=== PATIENT | female | born 1995 | race Caucasian/White ===

== ENCOUNTER → 2016-11-28 | Outpatient (CLI) | payer OTHER | LOC: HPND 07:29 | PROVIDERS: ATTEND Family Medicine | DX: O26.842 Uterine size-date discrepancy, second trimester (principal); Z36 Encounter for antenatal screening of mother | CPT/HCPCS: 76805 ==

== ENCOUNTER → 2016-12-26 | Outpatient (CLI) | payer OTHER | LOC: HPND 08:43 | PROVIDERS: ATTEND Family Medicine | DX: O09.32 Supervision of pregnancy with insufficient antenatal care, second trimester (principal); Z36 Encounter for antenatal screening of mother; Z3A.00 Weeks of gestation of pregnancy not specified | CPT/HCPCS: 76816 ==

== ENCOUNTER 2017-02-21 14:55 | Emergency (ER) | payer OTHER ==
[~2017-02-21] VITALS: Ht 162.6 cm; Wt 70.0 kg
[2017-02-21 15:22] VITALS: BP 124/69; PULSE 88; RESP 16; TEMP 98.7; O2SAT 96
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
[2017-03-16] MEDS ORDERED: INFL1INJ56 IM (11:42)
[2017-03-16] MEDS ORDERED: TENI5INJ IM (11:42)
[2017-03-16] MEDS ORDERED: TETA1INJ6 IM (11:56)
[2017-03-16] MEDS ORDERED: PREN1TAB30 PO (13:36)
== END 2017-02-21 16:19 | disposition home or self-care (01) ==
LOC: PHED 14:55
DX: O26.893 Other specified pregnancy related conditions, third trimester (principal); F41.9 Anxiety disorder, unspecified; Z3A.30 30 weeks gestation of pregnancy
CPT/HCPCS: 99284

== ENCOUNTER 2017-04-18 17:00 | Emergency (ER) | payer OTHER ==
[~2017-04-18] VITALS: Ht 162.6 cm; Wt 75.0 kg
[~2017-04-18 17:00] MED LIST: CEPH-460 PO; PREN1TAB30 PO
[2017-04-18 17:02] VITALS: BP 125/87; PULSE 88; RESP 12; TEMP 99; O2SAT 99
[2017-04-18] MEDS ORDERED: diphenhydrAMINE HCL 50 MG/ML VIAL IV PUSH ONE (19:30)
[2017-04-18] MEDS ORDERED: SODIUM CHLORIDE 0.9% FLUSH 10 ML FLUSH IV FLUSH PRN (19:30)
[2017-04-18 19:52] VITALS: RESP 19; O2SAT 100
--- NOTE | 2017-04-18 19:52 | PD ---
HPI Chief Complaint: Anxiety Time Seen by Provider: 19:20 (Epifanio Kang) Time Seen by Provider: 19:20 (Damaso Linder MD) Travel History International Travel<30 days: No Contact w/Intl Traveler<30days: No Traveled to known affect area: No (Epifanio Kang) History of Present Illness HPI 22-year-old female seen by Dr. Davis for her OB care, presents the emergency department with increasing symptoms of anxiety and emotional distress. Patient denies depression, suicidality or homicidality. She is here with her parents and brother. She has good social support. Patient has history of anxiety in the past. Patient states the baby is moving and she has no acute medical complaints at this time. (Epifanio Kang) PFSH Past Medical History Anxiety: Yes Immunizations Current: Yes ?: (Epifanio Kang) Past Surgical History Surgical History: No Previous Surgery (Epifanio Kang) Social History Alcohol Use: No Tobacco Use: No Substance Use: No (Epifanio Kang) Allergies-Medications (Allergen,Severity, Reaction): Coded Allergies: No Known Allergies (Unverified , 04/18/17) Reported Meds & Prescriptions Reported Meds & Active Scripts Active Phenergan (Promethazine HCl) 25 Mg Tablet 25 Mg PO Q6H PRN Diphenhydramine (Diphenhydramine HCl) 25 Mg Cap 25 Mg PO Q6H PRN Keflex (Cephalexin) 500 Mg Cap 500 Mg PO Q12H Vitamin 27-0.8 mg ( Vit W/ Ferrous Fumara) 27 Mg Iron-800 Mcg Tab 1 Tab PO DAILY (Damaso Linder MD) Review of Systems Except as stated in HPI: all other systems reviewed are Neg General / Constitutional: No: Fever Eyes: No: Visual changes HENT: No: Headaches Cardiovascular: No: Chest Pain or Discomfort Respiratory: No: Shortness of Breath Gastrointestinal: No: Abdominal Pain Genitourinary: No: Dysuria Musculoskeletal: No: Pain Skin: No Rash Neurologic: No: Weakness Psychiatric: Positive: Anxiety, No: Depression, Suicidal Ideations, Disorder of Thought, Mood Disorder, Homicidal Ideation Endocrine: No: Polydipsia Hematologic/Lymphatic: No: Easy Bruising (Epifanio Kang) Physical Exam Narrative GENERAL: Patient appears anxious but otherwise no acute distress SKIN: Warm and dry. Normal color. Normal turgor. HEAD: Atraumatic. Normocephalic. EYES: Pupils equal and round. No scleral icterus. No injection or drainage. ENT: No nasal bleeding or discharge. Mucous membranes pink and moist. NECK: Trachea midline. No JVD. CARDIOVASCULAR: Regular rate and rhythm. RESPIRATORY: No accessory muscle use. Clear to auscultation. Breath sounds equal bilaterally. GASTROINTESTINAL: Abdomen soft, non-tender, gravid uterus. Hepatic and splenic margins not palpable. MUSCULOSKELETAL: Extremities without clubbing, cyanosis, or edema. No obvious deformities. NEUROLOGICAL: Awake and alert. No obvious cranial nerve deficits. Motor grossly within normal limits. Five out of 5 muscle strength in the arms and legs. Normal speech. PSYCHIATRIC: Appropriate mood and affect; insight and judgment normal. (Epifanio Kang) Data Data Last Documented VS Vital Signs Date Time Temp Pulse Resp B/P (MAP) Pulse Ox O2 Delivery O2 Flow Rate FiO2 04/18/17 22:15 04/18/17 19:52 19 100 Room Air 04/18/17 17:02 99.0 88 (Damaso Linder MD) Orders Orders Complete Blood Count With Diff (04/18/17 19:26) Comprehensive Metabolic Panel (04/18/17 19:26) Urinalysis - C+S If Indicated (04/18/17 19:26) Iv Access Insert/Monitor (04/18/17 19:26) Ecg Monitoring (04/18/17 19:26) Oximetry (04/18/17 19:26) Sodium Chloride 0.9% Flush (Ns Flush) (04/18/17 19:30) Diphenhydramine Inj (Benadryl Inj) (04/18/17 19:30) Urine Culture (04/18/17 21:28) (Damaso Linder MD) Labs Laboratory Tests Test 04/18/17 19:45 04/18/17 21:28 White Blood Count 10.2 TH/MM3 Red Blood Count 4.22 MIL/MM3 Hemoglobin 13.5 GM/DL Hematocrit 39.7 % Mean Corpuscular Volume 93.9 FL Mean Corpuscular Hemoglobin 31.9 PG Mean Corpuscular Hemoglobin Concent 34.0 % Red Cell Distribution Width 13.7 % Platelet Count 250 TH/MM3 Mean Platelet Volume 9.1 FL Neutrophils (%) (Auto) 71.9 % Lymphocytes (%) (Auto) 17.6 % Monocytes (%) (Auto) 9.3 % Eosinophils (%) (Auto) 0.8 % Basophils (%) (Auto) 0.4 % Neutrophils # (Auto) 7.3 TH/MM3 Lymphocytes # (Auto) 1.8 TH/MM3 Monocytes # (Auto) 0.9 TH/MM3 Eosinophils # (Auto) 0.1 TH/MM3 Basophils # (Auto) 0.0 TH/MM3 CBC Comment DIFF FINAL Differential Comment Blood Urea Nitrogen 8 MG/DL Creatinine 0.72 MG/DL Random Glucose 79 MG/DL Total Protein 6.8 GM/DL Albumin 2.8 GM/DL Calcium Level 8.5 MG/DL Alkaline Phosphatase 175 U/L Aspartate Amino Transf (AST/SGOT) 26 U/L Alanine Aminotransferase (ALT/SGPT) 21 U/L Total Bilirubin 0.3 MG/DL Sodium Level 139 MEQ/L Potassium Level 3.9 MEQ/L Chloride Level 107 MEQ/L Carbon Dioxide Level 23.4 MEQ/L Anion Gap 9 MEQ/L Estimat Glomerular Filtration Rate 101 ML/MIN Urine Color YELLOW Urine Turbidity CLOUDY Urine pH 7.5 Urine Specific [place] 1.022 Urine Protein 30 mg/dL Urine Glucose (UA) NEG mg/dL Urine Ketones NEG mg/dL Urine Occult Blood NEG Urine Nitrite NEG Urine Bilirubin NEG Urine Urobilinogen 2.0 MG/DL Urine Leukocyte Esterase LARGE Urine RBC 14 /hpf Urine WBC 15 /hpf Urine Squamous Epithelial Cells 29 /hpf Urine Amorphous Sediment OCC Urine Bacteria MANY /hpf Urine Mucus FEW /lpf Microscopic Urinalysis Comment CULTURE INDICATED (Damaso Linder MD) MDM Medical Decision Making Medical Screen Exam Complete: Yes Emergency Medical Condition: Yes Differential Diagnosis 37 weeks . UTI. Anxious. Anxiety Narrative Course Patient appears mildly anxious but otherwise in no acute distress. heart tones are 133 bpm. EKG with mom shows sinus rhythm without ST changes. Labs ordered including CBC, CMP, urinalysis, and beta hCG. CBC is unremarkable. CMP is unremarkable except alkaline phosphatase of 175. Albumin of 2.8. Urinalysis shows continued UTI and urine culture is pending. Patient to continue her Keflex as previously prescribed. Patient is given 25 mg Benadryl IV. Patient states she is not suicidal or homicidal. I do not feel she is a danger to herself or others. Patient has good support. Call was placed to Dr. Davis's office, and I spoke with Dr. Costa, and we discussed possible treatment for her anxiety. It was decided that if the labs on the patient are normal, we will treat her with Benadryl 25 mg every 6 hours when necessary as well as Phenergan, 12.5 mg every 6 hours when necessary. Patient is to follow with Dr. Davis's office next week. (Epifanio Kang) Diagnosis Primary Impression: Anxiety Additional Impression: 37 weeks gestation of Referrals: William Davis MD, R3 Patient Instructions: Anxiety (ED), General Instructions Med/Other Pt SpecificInfo: Prescription(s) given, No Change to Meds (Epifanio Kang) Scripts Promethazine (Phenergan) 25 Mg Tablet 25 MG PO Q6H Y for ANXIETY, #30 TAB 0 Refills Prov: Damaso Linder MD 04/18/17 Diphenhydramine (Diphenhydramine) 25 Mg Cap 25 MG PO Q6H Y for ANXIETY AND/OR INSOMNIA, #60 CAP 0 Refills Prov: Damaso Linder MD 04/18/17 Disposition: 01 DISCHARGE HOME Condition: Stable Epifanio Kang Apr 18, 2017 19:52 Damaso Linder MD Apr 20, 2017 02:39
[2017-04-18 20:16] LABS: AUTOMATED NEUTROPHIL # 7.3 TH/MM3 (1.8-7.7); BASOPHIL % 0.4 % (0.0-2.0); EOSINOPHIL # 0.1 TH/MM3 (0-0.4); EOSINOPHIL % 0.8 % (0.0-4.0); HEMATOCRIT 39.7 % (35.0-46.0); HEMO FLAGS DIFF FINAL; LYMPH % 17.6 % (9.0-44.0); LYMPHOCYTE # 1.8 TH/MM3 (1.0-4.8); MEAN CELL VOLUME 93.9 FL (80.0-100.0); MEAN CORPUSCULAR HEMOGLOBIN 31.9 PG (27.0-34.0); MONO % 9.3 % (0.0-8.0); NEUT % 71.9 % (16.0-70.0); PLATELET COUNT 250 TH/MM3 (150-450); RED BLOOD COUNT 4.22 MIL/MM3 (4.00-5.30); RED CELL DISTRIBUTION WIDTH 13.7 % (11.6-17.2); WHITE BLOOD COUNT 10.2 TH/MM3 (4.0-11.0)
--- NOTE | 2017-04-18 20:25 | PD ---
Physical Exam Narrative pt has anxiety 37 weeks PA spoke to KENN MUÑOZ plan benadryl phergan I have reviewed the case with the PA and agree with plan and dispo I have seen the pt personally and made this discsion with the PA Data Data Last Documented VS Vital Signs Date Time Temp Pulse Resp B/P (MAP) Pulse Ox O2 Delivery O2 Flow Rate FiO2 04/18/17 22:15 04/18/17 19:52 19 100 Room Air 04/18/17 17:02 99.0 88 Orders Orders Complete Blood Count With Diff (04/18/17 19:26) Comprehensive Metabolic Panel (04/18/17 19:26) Urinalysis - C+S If Indicated (04/18/17 19:26) Iv Access Insert/Monitor (04/18/17 19:26) Ecg Monitoring (04/18/17 19:26) Oximetry (04/18/17 19:26) Sodium Chloride 0.9% Flush (Ns Flush) (04/18/17 19:30) Diphenhydramine Inj (Benadryl Inj) (04/18/17 19:30) Urine Culture (04/18/17 21:28) Labs Laboratory Tests Test 04/18/17 19:45 04/18/17 21:28 White Blood Count 10.2 TH/MM3 Red Blood Count 4.22 MIL/MM3 Hemoglobin 13.5 GM/DL Hematocrit 39.7 % Mean Corpuscular Volume 93.9 FL Mean Corpuscular Hemoglobin 31.9 PG Mean Corpuscular Hemoglobin Concent 34.0 % Red Cell Distribution Width 13.7 % Platelet Count 250 TH/MM3 Mean Platelet Volume 9.1 FL Neutrophils (%) (Auto) 71.9 % Lymphocytes (%) (Auto) 17.6 % Monocytes (%) (Auto) 9.3 % Eosinophils (%) (Auto) 0.8 % Basophils (%) (Auto) 0.4 % Neutrophils # (Auto) 7.3 TH/MM3 Lymphocytes # (Auto) 1.8 TH/MM3 Monocytes # (Auto) 0.9 TH/MM3 Eosinophils # (Auto) 0.1 TH/MM3 Basophils # (Auto) 0.0 TH/MM3 CBC Comment DIFF FINAL Differential Comment Blood Urea Nitrogen 8 MG/DL Creatinine 0.72 MG/DL Random Glucose 79 MG/DL Total Protein 6.8 GM/DL Albumin 2.8 GM/DL Calcium Level 8.5 MG/DL Alkaline Phosphatase 175 U/L Aspartate Amino Transf (AST/SGOT) 26 U/L Alanine Aminotransferase (ALT/SGPT) 21 U/L Total Bilirubin 0.3 MG/DL Sodium Level 139 MEQ/L Potassium Level 3.9 MEQ/L Chloride Level 107 MEQ/L Carbon Dioxide Level 23.4 MEQ/L Anion Gap 9 MEQ/L Estimat Glomerular Filtration Rate 101 ML/MIN Urine Color YELLOW Urine Turbidity CLOUDY Urine pH 7.5 Urine Specific [place] 1.022 Urine Protein 30 mg/dL Urine Glucose (UA) NEG mg/dL Urine Ketones NEG mg/dL Urine Occult Blood NEG Urine Nitrite NEG Urine Bilirubin NEG Urine Urobilinogen 2.0 MG/DL Urine Leukocyte Esterase LARGE Urine RBC 14 /hpf Urine WBC 15 /hpf Urine Squamous Epithelial Cells 29 /hpf Urine Amorphous Sediment OCC Urine Bacteria MANY /hpf Urine Mucus FEW /lpf Microscopic Urinalysis Comment CULTURE INDICATED MDM Medical Record Reviewed: Yes Supervised Visit with DIONTE: Yes Diagnosis Primary Impression: Anxiety Additional Impression: 37 weeks gestation of Patient Instructions: General Instructions, Anxiety (ED) Scripts Promethazine (Phenergan) 25 Mg Tablet 25 MG PO Q6H Y for ANXIETY, #30 TAB 0 Refills Prov: Damaso Linder MD 04/18/17 Diphenhydramine (Diphenhydramine) 25 Mg Cap 25 MG PO Q6H Y for ANXIETY AND/OR INSOMNIA, #60 CAP 0 Refills Prov: Damaso Linder MD 04/18/17 Disposition: 01 DISCHARGE HOME Condition: Stable Damaso Linder MD Apr 18, 2017 20:25
[2017-04-18 20:40] LABS: ANION GAP 9 MEQ/L (5-15); AST (GOT) 26 U/L (15-37); BICARBONATE 23.4 MEQ/L (21.0-32.0); BLOOD UREA NITROGEN 8 MG/DL (7-18); CHLORIDE 107 MEQ/L (98-107); GLOMERULAR FILTRATION RATE 101 ML/MIN (>89); POTASSIUM 3.9 MEQ/L (3.5-5.1); SODIUM (NA) 139 MEQ/L (136-145)
[2017-04-18 20:41] LABS: ALT (GPT) 21 U/L (10-53)
[2017-04-18 20:43] LABS: ALKALINE PHOSPHATASE 175 U/L (45-117); TOTAL BILIRUBIN ADULT 0.3 MG/DL (0.2-1.0)
[2017-04-18] MEDS ORDERED: DIPH25CA PO (21:43)
[2017-04-18] MEDS ORDERED: PROM25TA10 PO (21:43)
[2017-04-18 21:55] LABS: BACTERIA, URINE MANY /hpf; BLOOD, URINE NEG (NEG); COMMENT (UR) CULTURE INDICATED; CULTURE IF INDICATED CULTURE INDICATED; GLUCOSE,URINE NEG (NEG); KETONE, URINE NEG (NEG); MUCUS URINE FEW /lpf (OCC); NITRITE,URINE NEG (NEG); PH, URINE 7.5 (5.0-8.5); SQUAMOUS EPITHELIAL CELL URINE 29 /hpf (0-5); URINE COLOR YELLOW (YELLW/STRAW)
--- NOTE | 2017-04-19 20:51 | PD ---
Data Data Last Documented VS Vital Signs Date Time Temp Pulse Resp B/P (MAP) Pulse Ox O2 Delivery O2 Flow Rate FiO2 04/18/17 22:15 04/18/17 19:52 19 100 Room Air 04/18/17 17:02 99.0 88 Orders Orders Complete Blood Count With Diff (04/18/17 19:26) Comprehensive Metabolic Panel (04/18/17 19:26) Urinalysis - C+S If Indicated (04/18/17 19:26) Iv Access Insert/Monitor (04/18/17 19:26) Ecg Monitoring (04/18/17 19:26) Oximetry (04/18/17 19:26) Sodium Chloride 0.9% Flush (Ns Flush) (04/18/17 19:30) Diphenhydramine Inj (Benadryl Inj) (04/18/17 19:30) Urine Culture (04/18/17 21:28) Labs Laboratory Tests Test 04/18/17 19:45 04/18/17 21:28 White Blood Count 10.2 TH/MM3 Red Blood Count 4.22 MIL/MM3 Hemoglobin 13.5 GM/DL Hematocrit 39.7 % Mean Corpuscular Volume 93.9 FL Mean Corpuscular Hemoglobin 31.9 PG Mean Corpuscular Hemoglobin Concent 34.0 % Red Cell Distribution Width 13.7 % Platelet Count 250 TH/MM3 Mean Platelet Volume 9.1 FL Neutrophils (%) (Auto) 71.9 % Lymphocytes (%) (Auto) 17.6 % Monocytes (%) (Auto) 9.3 % Eosinophils (%) (Auto) 0.8 % Basophils (%) (Auto) 0.4 % Neutrophils # (Auto) 7.3 TH/MM3 Lymphocytes # (Auto) 1.8 TH/MM3 Monocytes # (Auto) 0.9 TH/MM3 Eosinophils # (Auto) 0.1 TH/MM3 Basophils # (Auto) 0.0 TH/MM3 CBC Comment DIFF FINAL Differential Comment Blood Urea Nitrogen 8 MG/DL Creatinine 0.72 MG/DL Random Glucose 79 MG/DL Total Protein 6.8 GM/DL Albumin 2.8 GM/DL Calcium Level 8.5 MG/DL Alkaline Phosphatase 175 U/L Aspartate Amino Transf (AST/SGOT) 26 U/L Alanine Aminotransferase (ALT/SGPT) 21 U/L Total Bilirubin 0.3 MG/DL Sodium Level 139 MEQ/L Potassium Level 3.9 MEQ/L Chloride Level 107 MEQ/L Carbon Dioxide Level 23.4 MEQ/L Anion Gap 9 MEQ/L Estimat Glomerular Filtration Rate 101 ML/MIN Urine Color YELLOW Urine Turbidity CLOUDY Urine pH 7.5 Urine Specific [place] 1.022 Urine Protein 30 mg/dL Urine Glucose (UA) NEG mg/dL Urine Ketones NEG mg/dL Urine Occult Blood NEG Urine Nitrite NEG Urine Bilirubin NEG Urine Urobilinogen 2.0 MG/DL Urine Leukocyte Esterase LARGE Urine RBC 14 /hpf Urine WBC 15 /hpf Urine Squamous Epithelial Cells 29 /hpf Urine Amorphous Sediment OCC Urine Bacteria MANY /hpf Urine Mucus FEW /lpf Microscopic Urinalysis Comment CULTURE INDICATED MDM Supervised Visit with DIONTE: Yes Diagnosis Primary Impression: Anxiety Additional Impression: 37 weeks gestation of Patient Instructions: General Instructions, Anxiety (ED) Departure Forms: Tests/Procedures Scripts Promethazine (Phenergan) 25 Mg Tablet 25 MG PO Q6H Y for ANXIETY, #30 TAB 0 Refills Prov: Damaso Linder MD 04/18/17 Diphenhydramine (Diphenhydramine) 25 Mg Cap 25 MG PO Q6H Y for ANXIETY AND/OR INSOMNIA, #60 CAP 0 Refills Prov: Damaso Linder MD 04/18/17 Disposition: 01 DISCHARGE HOME Condition: Stable Damaso Linder MD Apr 19, 2017 20:51
== END 2017-04-18 22:28 | disposition home or self-care (01) ==
LOC: NEPC 17:00
DX: O99.343 Other mental disorders complicating pregnancy, third trimester (principal); F41.9 Anxiety disorder, unspecified; Z3A.37 37 weeks gestation of pregnancy; B96.89 Other specified bacterial agents as the cause of diseases classified elsewhere; R82.90 Unspecified abnormal findings in urine
CPT/HCPCS: 80053; 81001; 85025; 87086; 96374; 99284; J1200

== ENCOUNTER 2017-05-12 09:45 | Emergency (ER) | payer OTHER ==
[~2017-05-12 09:45] MED LIST changes: -CEPH-460 PO; +DIPH25CA PO; +PROM25TA10 PO
--- NOTE | 2017-05-12 11:40 | PD ---
HPI Chief Complaint Patient was sent from clinic for NST Date Seen: May 12, 2017 Travel History International Travel<30 Days: No Contact w/Intl Traveler<30Days: No History of Present Illness HPI 22 at 40/6 weeks gestation that presents to the [facility], sent from the [facility] for NST. Notably, patient is GBS positive and receives her care with Dr. Daquan Davis, one of the family. Patient has no complaints today. She denies vaginal bleeding, dysuria, loss of fluid, nausea, vomiting, fever, or chills. She is not feeling contractions. She has been feeling her baby move. History Past Medical History Medical History: Denies Significant Hx Obstetric History Obstetric History , uncomplicated . GBS positive Past Surgical History Surgical History: No Previous Surgery Family History Family History: Negative Social History Alcohol Use: No Tobacco Use: No Substance Abuse: No Allergies-Medications (Allergen,Severity, Reaction): Coded Allergies: No Known Allergies (Unverified , 05/06/17) Home Meds Active Scripts Promethazine (Phenergan) 25 Mg Tablet, 25 MG PO Q6H Y for ANXIETY, #30 TAB 0 Refills Prov:Damaso Linder MD 04/18/17 Diphenhydramine (Diphenhydramine) 25 Mg Cap, 25 MG PO Q6H Y for ANXIETY AND/OR INSOMNIA, #60 CAP 0 Refills Prov:Damaso Linder MD 04/18/17 Vit W/ Ferrous Fumara ( Vitamin 27-0.8 mg) 27 Mg Iron-800 Mcg Tab, 1 TAB PO DAILY, #30 TAB Prov:iWlliam Davis MD, R3 03/16/17 Review of Systems Except as stated in HPI: all other systems reviewed are Neg Physical Exam Narrative GENERAL: Well-nourished, well-developed patient. SKIN: Warm and dry. HEAD: Normocephalic and atraumatic. EYES: No scleral icterus. No injection or drainage. ENT: No nasal drainage noted. Mucous membranes pink. Airway patent. NECK: Supple, trachea midline. No JVD. CARDIOVASCULAR: Regular rate and rhythm without murmurs, gallops, or rubs. RESPIRATORY: Breath sounds equal bilaterally. No accessory muscle use. ABDOMEN/GI: Abdomen soft, non-tender, bowel sounds present, no rebound, no guarding Gravid to 40 weeks size GENITOURINARY: External Genitalia: intact and normal in appearance Cervix: Posterior Dilatation: 2cm Effacement: 50% Station: -3 Presentation: cephalic Membranes: intact Uterine Contractions: every 6-9 mins FHT's: Category: I Baseline: 140 Reactive: Up to 155 Variability: Moderate Decels: None EXTREMITIES: No cyanosis or edema. BACK: Nontender without obvious deformity. No CVA tenderness. NEUROLOGICAL: Awake and alert. Motor and sensory grossly within normal limits. Five out of 5 muscle strength in all muscle groups. Normal speech. Data Data Vital Signs Reviewed: Yes Orders Orders Vital Signs (Adult) .ON ADMISSION (05/12/17 11:35) ^ Labor Status (05/12/17 11:35) ^ Non Stress Test (05/12/17 11:35) ^ Hydration (05/12/17 11:35) Group B Strep: Positive MDM Medical Record Reviewed: Yes Interpretation(s) 22 at 40/6 weeks gestation presents for NST due to post-dates Narrative Course / MDM Reassuring strip category I, no decelerations. Baby doing well. Mom not feeling contractions which are occurring every 6-9 mins. Dilated to 2 cm. No complications. Plan Plan is to admit tomorrow 05/13/17 at 8 PM for cervical ripening/induction of labor Induction discussed with patient, family members, and will be provided Dr. Daquan Davis who all agree with the plan. Discussed signs of labor and patient instructed to return to the ED if her water breaks. Diagnosis Diagnosis: Primary Impression: Post-dates Disposition: DISCHARGE HOME Patient Instructions: Early Labor Signs (ED) Additional Instructions: Pls return to the ED if your water breaks or you start having frequent, painful contractions. If not, we will see you tomorrow 05/13 at 8pm for induction. Olga Vyas MD R2 May 12, 2017 11:40
[2017-05-13] MEDS ORDERED: PRENTAB7 (20:30)
== END 2017-05-12 12:45 | disposition home or self-care (01) ==
LOC: HOBED 09:45
DX: O48.0 Post-term pregnancy (principal); Z3A.40 40 weeks gestation of pregnancy
CPT/HCPCS: 59025

== ENCOUNTER 2017-05-13 20:02 | Inpatient (IN) | payer OTHER ==
[~2017-05-13] VITALS: Ht 162.6 cm; Wt 74.4 kg
[2017-05-13] MEDS ORDERED: PRENTAB7 (20:30)
--- NOTE | 2017-05-13 20:49 | HHI.HP ---
HPI Travel History International Travel<30 Days: No Contact w/Intl Traveler<30Days: No History of Present Illness HPI Patient is a 22 y/o @41 weeks presenting for induction of labor. Is a patient of Dr.Grant Davis, who she saw yesterday and who sent her to [place] for NST. NST was category 1 and cervix was dilated to 2 cm. Today, patient endorses contractions she feels that are occurring every 20-30 min, + FM. Denies vaginal bleeding, leakage of fluid, visual disturbance, leg swelling, abdominal pain. No hospitalizations or complications during . GBS+. PAP 12/26/16 was ASGUS. Weeks Gestation: 41 Para: 0 : 1 Miscarriage: 0 : 0 History Past Medical History Narrative Medical Generalized anxiety Obstetric History Obstetric History G1PO This is her first GBS+ PAP 12/26/16 was ASGUS Blood type 0, Rh+ EED per US is 11.22.17 Past Surgical History Surgical History: No Previous Surgery Family History Family History: Negative Social History Alcohol Use: No Tobacco Use: No Substance Abuse: No Allergies-Medications (Allergen,Severity, Reaction): Coded Allergies: No Known Allergies (Unverified , 05/13/17) Home Meds Reported Medications Pnv No.95/Ferrous Fum/Folic AC ( Vitamins Tablet) 28 Mg Iron-800 Mcg Tablet 05/13/17 Discontinued Scripts Promethazine (Phenergan) 25 Mg Tablet, 25 MG PO Q6H Y for ANXIETY, #30 TAB 0 Refills Prov:Damaso Linder MD 04/18/17 Diphenhydramine (Diphenhydramine) 25 Mg Cap, 25 MG PO Q6H Y for ANXIETY AND/OR INSOMNIA, #60 CAP 0 Refills Prov:Damaso Linder MD 04/18/17 Vit W/ Ferrous Fumara ( Vitamin 27-0.8 mg) 27 Mg Iron-800 Mcg Tab, 1 TAB PO DAILY, #30 TAB Prov:William Davis MD, R3 03/16/17 Review of Systems Except as stated in HPI: all other systems reviewed are Neg Physical Exam Narrative GENERAL: Well-nourished, well-developed patient. SKIN: Warm and dry. HEAD: Normocephalic and atraumatic. EYES: No scleral icterus. No injection or drainage. ENT: No nasal drainage noted. Mucous membranes pink. Airway patent. NECK: Supple, trachea midline. CARDIOVASCULAR: Regular rate and rhythm without murmurs, gallops, or rubs. RESPIRATORY: Breath sounds equal bilaterally. No accessory muscle use. ABDOMEN/GI: Abdomen soft, non-tender, no rebound, no guarding GENITOURINARY: External Genitalia: intact and normal in appearance Cervix: soft Dilatation: 5 cm Effacement: 70% Station: -2 Presentation: [-] Membranes: intact Uterine Contractions: none, appears to be uterine irritability FHT's: Category: 1 Baseline: 130 Reactive: yes Variability: moderate Decels: absent EXTREMITIES: No cyanosis or edema. NEUROLOGICAL: Awake and alert. Motor and sensory grossly within normal limits. Five out of 5 muscle strength in all muscle groups. Normal speech. Caprini VTE Risk Assessment Caprini VTE Risk Assessment: No/Low Risk (score <= 1) Caprini Risk Assessment Model Point Value = 1 Point Value = 2 Point Value = 3 Point Value = 5 Age 41-60 Minor surgery BMI > 25 kg/m2 Swollen legs Varicose veins or History of unexplained or recurrent spontaneous Oral contraceptives or hormone replacement Sepsis (< 1 month) Serious lung disease, including pneumonia (< 1 month) Abnormal pulmonary function Acute myocardial infarction Congestive heart failure (< 1 month) History of inflammatory bowel disease Medical patient at bed rest Age 61-74 Arthroscopic surgery Major open surgery (> 45 min) Laparoscopic surgery (> 45 min) Malignancy Confined to bed (> 72 hours) Immobilizing plaster cast Central venous access Age >= 75 History of VTE Family history of VTE Factor V Leiden Prothrombin [id number] Lupus anticoagulant Anticardiolipin antibodies Elevated serum homocysteine Heparin-induced thrombocytopenia Other congenital or acquired thrombophilia Stroke (< 1 month) Elective arthroplasty Hip, pelvis, or leg fracture Acute spinal cord injury (< 1 month) Prophylaxis Regimen Total Risk Factor Score Risk Level Prophylaxis Regimen 0-1 Low Early ambulation 2 Moderate Order ONE of the following: *Sequential Compression Device (SCD) *Heparin 5000 units SQ BID 3-4 Higher Order ONE of the following medications: *Heparin 5000 units SQ TID *Enoxaparin/Lovenox 40 mg SQ daily (WT < 150 kg, CrCl > 30 mL/min) *Enoxaparin/Lovenox 30 mg SQ daily (WT < 150 kg, CrCl > 10-29 mL/min) *Enoxaparin/Lovenox 30 mg SQ BID (WT < 150 kg, CrCl > 30 mL/min) AND/OR *Sequential Compression Device (SCD) 5 or more Highest Order ONE of the following medications: *Heparin 5000 units SQ TID (Preferred with Epidurals) *Enoxaparin/Lovenox 40 mg SQ daily (WT < 150 kg, CrCl > 30 mL/min) *Enoxaparin/Lovenox 30 mg SQ daily (WT < 150 kg, CrCl > 10-29 mL/min) *Enoxaparin/Lovenox 30 mg SQ BID (WT < 150 kg, CrCl > 30 mL/min) AND *Sequential Compression Device (SCD) Data Data Vital Signs Reviewed: Yes Group B Strep: Positive Assessment/Plan Problem List: (1) Encounter for induction of labor ICD Codes: Z34.90 - Encounter for supervision of normal , unspecified , unspecified trimester (2) 41 weeks gestation of ICD Codes: Z3A.41 - 41 weeks gestation of Assessment and Plan Patient is a 22 y/o @41 weeks admitted for induction of labor. GBS+, Categ 1 tracing, 5 cm dilated. Blood type O+. - Will monitor overnight - PCN prophylaxis - consider oxytocin if arrest of labor Winifred Rm MD R1 May 13, 2017 20:49
[2017-05-13] MEDS ORDERED: LACTATED RINGER'S 1000 ML INJ 1,000 ML IV SCH (21:16)
[2017-05-13] MEDS ORDERED: LACTATED RINGER'S 1000 ML INJ 1,000 ML IV PRN (21:16)
[2017-05-13] MEDS ORDERED: SODIUM CHLORID 0.9% 500 ML INJ 500 ML IV PRN (21:30)
[2017-05-13] MEDS ORDERED: OXYTOCIN 30 UNITS-500ML PREMIX 500 ML IV ONE (21:30)
[2017-05-13] MEDS ORDERED: MINERAL OIL 10 ML VIAL TOPICAL PRN (21:30)
[2017-05-13] MEDS ORDERED: LIDOCAINE HCL 1% 50 ML VIAL INFIL PRN (21:30)
[2017-05-13] MEDS ORDERED: PENICILLIN G POTASSIUM INJ 5,000,000 UNITS in SODIUM CHLORIDE 0.9% INJ 100 ML IV ONE (21:30)
[2017-05-13] MEDS ORDERED: LIDOCAINE HCL 1% 50 ML VIAL I-DERMAL PRN (21:30)
[2017-05-13] MEDS ORDERED: CITRIC ACID-SODIUM CITRATE LIQ 30 ML UDC PO SCH (21:30)
[2017-05-13] MEDS ORDERED: SODIUM CHLOR 0.9% 1000 ML INJ 1,000 ML IV PRN (21:36)
[2017-05-13 21:49] LABS: AUTOMATED NEUTROPHIL # 7.1 TH/MM3 (1.8-7.7); BASOPHIL % 0.4 % (0.0-2.0); EOSINOPHIL % 0.2 % (0.0-4.0); HEMATOCRIT 39.3 % (35.0-46.0); HEMO FLAGS DIFF FINAL; LYMPH % 18.9 % (9.0-44.0); LYMPHOCYTE # 1.9 TH/MM3 (1.0-4.8); MEAN CELL VOLUME 93.8 FL (80.0-100.0); MEAN CORPUSCULAR HEMOGLOBIN 32.4 PG (27.0-34.0); MEAN CORPUSCULAR HGB CONC 34.5 % (32.0-36.0); MONO % 8.1 % (0.0-8.0); NEUT % 72.4 % (16.0-70.0); PLATELET COUNT 227 TH/MM3 (150-450); RED BLOOD COUNT 4.19 MIL/MM3 (4.00-5.30); RED CELL DISTRIBUTION WIDTH 13.7 % (11.6-17.2); WHITE BLOOD COUNT 9.8 TH/MM3 (4.0-11.0)
[2017-05-13 21:53] LABS: BLOOD, URINE TRACE (NEG); COMMENT (UR) CULT NOT INDICATED; CULTURE IF INDICATED CULT NOT INDICATED; GLUCOSE,URINE NEG (NEG); KETONE, URINE NEG (NEG); MUCUS URINE FEW /lpf (OCC); NITRITE,URINE NEG (NEG); PH, URINE 7.5 (5.0-8.5); SQUAMOUS EPITHELIAL CELL URINE 5 /hpf (0-5); URINE COLOR YELLOW (YELLW/STRAW)
[2017-05-13 22:27] VITALS: RESP 18
[2017-05-13 23:39] VITALS: TEMP 98
[2017-05-13 23:43] VITALS: BP 139/102; PULSE 69
[2017-05-13 23:45] VITALS: RESP 18
[2017-05-14] VITALS (13 sets, daily range): BP systolic 115–150; BP diastolic 68–111; PULSE 52–88; RESP 12–18; TEMP 97.6–98.4; O2SAT 97
--- NOTE | 2017-05-14 00:28 | PD.LABORPN ---
Subjective Subjective Patient laying in bed feeling the contractions and pressures. Does not want an epidural at this time. Objective Vital Signs Vital Signs Date Time Temp Pulse Resp B/P (MAP) Pulse Ox O2 Delivery O2 Flow Rate FiO2 05/14/17 00:00 18 05/13/17 23:45 18 05/13/17 23:43 69 139/102 (114) 05/13/17 23:39 98.0 05/13/17 22:27 18 Objective Performed by nurse prior to my arrival Pelvic Exam: Cervix: soft, midposition Dilatation:9 Effacement: 90 Station: -1 Presentation: vertex Membranes: intact Uterine Contractions: [-] FHT's: Category: 1 Baseline: 135 Reactive: accels present Variability: moderate Decels: none Weeks Gestation: 41 Assessment/Plan Problem List: (1) 41 weeks gestation of ICD Codes: Z3A.41 - 41 weeks gestation of Assessment and Plan 22yo female at 41/1. In active labor 1. IUP * cat 1 heart tracing reassuring * routine labor care * good contraction pattern, pt declining epidural/pain meds * anticipate vaginal delivery 2. GBS positive * PCN wdw Dr. Chopra. Elena Nichols MD, R3 May 14, 2017 00:28
[2017-05-14] MEDS ORDERED: PENICILLIN G POTASSIUM INJ 2,500,000 UNITS in SODIUM CHLORIDE 0.9% INJ 100 ML IV SCH (02:00)
[2017-05-14] MEDS ORDERED: BENZOCAINE 20% TOPICAL SPRAY 60 ML CAN TOPICAL PRN (02:15)
[2017-05-14] MEDS ORDERED: OXYTOCIN 30 UNITS-500ML PREMIX 500 ML IV SCH (02:15)
[2017-05-14] MEDS ORDERED: ACETAMINOPHEN 325 MG TAB PO PRN (02:15)
[2017-05-14] MEDS ORDERED: ZOLPIDEM TARTRATE 5 MG TAB PO PRN (02:15)
[2017-05-14] MEDS ORDERED: SODIUM CHLORIDE 0.9% FLUSH 10 ML FLUSH IV FLUSH PRN (02:15)
[2017-05-14] MEDS ORDERED: ALUMINUM/MAGNESIUM/SIMETH 30 ML CUP PO PRN (02:15)
[2017-05-14] MEDS ORDERED: DOCUSATE SODIUM 50 MG/SENNA 8.6 MG TAB PO PRN (02:15)
[2017-05-14] MEDS ORDERED: ONDANSETRON ODT 4 MG TAB PO PRN (02:15)
[2017-05-14] MEDS ORDERED: WITCH HAZEL 50%/GLYCERIN 12.5% 40 PAD JAR TOPICAL PRN (02:15)
--- NOTE | 2017-05-14 02:15 | PD.OB.DELI ---
Weeks gestation: 41 Gest age assessed date: May 14, 2017 Gest age assessed time: 02:15 Pt started active labor?: Yes Active labor start date: May 14, 2017 Medical induction of labor?: No Artificial rupture of membrane: No Anesthesia: Lidocaine local to perineum Episiotomy: None Vaginal Delivery: Normal, Spontaneous Presentation: Occiput posterior Nuchal Cord: None Delayed cord clamping (45 sec): Yes : Female Delivery date: May 14, 2017 Delivery time: 01:36 One Minute : 8 Five Minute : 8 Weight: 3175 Placenta: Spontaneous delivery, Intact, 3 vessel cord Laceration: Perineal laceration (One laceration on the left at 7 o'clock, second laceration 10 o'clock), 1 deg, 2 deg Repair: Chromic running Estimated blood loss: 250 Additional Information Used local lidocaine at the site of both perineal lacerations. Used 2'0 chromic on the left upper perineum; running, locking suture. Used 3'0 chromic on the left, lower laceration; running, locking suture. Supervised by Dr. Chopra, delivered by Dr. Rm, assisted by Winifred Gunn MD May 14, 2017 02:15
[2017-05-14] MEDS: IBUPROFEN 800 MG TAB PO PRN (04:52)
--- NOTE | 2017-05-14 13:13 | HHI.OB ---
Subjective Post Day: 0 Remarks Doing well from delivery early this morning. Ambulating and voiding without difficulty. Pain well-controlled with medications. Having slight vaginal bleeding. Denies fever, chills, nausea, vomiting. No complaints at this time. Baby is following with [facility]. Mom does not want to breast-feed despite being educated on its benefits. Objective Vitals/I&O Vital Signs Date Time Temp Pulse Resp B/P (MAP) Pulse Ox O2 Delivery O2 Flow Rate FiO2 05/14/17 08:00 98.4 52 12 125/85 (98) 97 05/14/17 04:58 97.6 53 18 126/68 (87) 05/14/17 03:15 54 125/89 (101) 05/14/17 03:02 18 05/14/17 03:00 18 05/14/17 03:00 52 127/73 (91) 05/14/17 02:45 18 05/14/17 02:45 53 115/71 (86) 05/14/17 02:31 62 130/68 (88) 05/14/17 02:16 55 18 127/68 (87) 05/14/17 02:14 18 05/14/17 02:12 131/111 (118) 05/14/17 00:22 18 05/14/17 00:00 18 05/13/17 23:45 18 05/13/17 23:43 69 139/102 (114) 05/13/17 23:39 98.0 05/13/17 22:27 18 Objective Remarks GENERAL: Well-nourished, well-developed patient. CARDIOVASCULAR: Regular rate and rhythm without murmurs, gallops, or rubs. RESPIRATORY: Breath sounds equal bilaterally. No accessory muscle use. ABDOMEN/GI: Abdomen soft, non-tender. Fundus: Firm, non-tender at umbilicus. GENITOURINARY: Light to moderate bleeding. EXTREMITIES: No cyanosis or edema, non-tender, without signs of DVT. Medications and IVs Current Medications Medications (Trade) Dose Ordered Sig/Cherry Route Start Time Stop Time Status Last Admin (NS Flush) 2 ml BID IV FLUSH 05/14/17 09:00 (NS Flush) 2 ml UNSCH PRN IV FLUSH 05/14/17 02:15 (Tylenol) 650 mg Q4H PRN PO 05/14/17 02:15 (Motrin) 800 mg Q8H PRN PO 05/14/17 02:15 05/14/17 04:52 (Americaine 20% Top Spr) 1 spray Q4H PRN TOPICAL 05/14/17 02:15 05/14/17 04:52 (Tucks Pads) 1 applic QID PRN TOPICAL 05/14/17 02:15 05/14/17 04:52 (Geno-Colace) 2 tab Q12H PRN PO 05/14/17 02:15 (Ambien) 5 mg HS PRN PO 05/14/17 02:15 (M-M-R Ii Inj) 0.5 ml ONCE ONCE SQ 05/14/17 16:00 05/14/17 16:01 (Boostrix Inj) 0.5 ml ONCE ONCE IM 05/14/17 16:00 05/14/17 16:01 (Mag-Al Plus Susp Liq) 15 ml Q8H PRN PO 05/14/17 02:15 (Zofran Odt) 4 mg Q6H PRN PO 05/14/17 02:15 Assessment/Plan Problem List: (1) Vaginal delivery ICD Codes: O80 - Encounter for full-term uncomplicated delivery Status: Acute Plan: 22 year old PPD0 1. Care - AFVSS since delivery - Motrin prn pain - Encouraged OOB, as tolerated - Pelvic rest x 6 weeks - Will f/u with me in 4 weeks - Encouraged breast-feeding, but patient is not interested - To discuss contraception at follow-up visit - Anticipate d/c tomorrow or Thursday (baby is GBS positive treatment 1, may require 48 hour stay) William Davis MD, R3 May 14, 2017 13:12
[2017-05-14] MEDS ORDERED: DIPHTH/TETANUS/ACEL PERTUSSIS (BOOSTER) 0.5 ML VIAL/PFS IM ONE (16:00)
[2017-05-14] MEDS ORDERED: MEASLES, MUMPS, RUBELLA VACCINE 0.5 ML VIAL SQ ONE (16:00)
[2017-05-15 04:00] VITALS: BP 121/68; PULSE 53; RESP 18
--- NOTE | 2017-05-15 08:13 | HHI.OB ---
Subjective Post Day: 1 Remarks She is doing well this morning. She is ambulating and voiding without difficulty. Vaginal bleeding is decreasing, and not passing large clots. Her pain is well managed. She only took one Motrin yesterday. She denies fever, chills, nausea, vomiting. She is formula feeding. Baby is doing well. (William Davis MD, R3) Objective Vitals/I&O Vital Signs Date Time Temp Pulse Resp B/P (MAP) Pulse Ox O2 Delivery O2 Flow Rate FiO2 05/15/17 04:00 53 18 121/68 (85) 05/14/17 21:30 97.7 88 18 150/89 (109) Objective Remarks GENERAL: Well-nourished, well-developed patient. CARDIOVASCULAR: Regular rate and rhythm without murmurs, gallops, or rubs. RESPIRATORY: Breath sounds equal bilaterally. No accessory muscle use. ABDOMEN/GI: Abdomen soft, non-tender. Fundus: Firm, non-tender at umbilicus. GENITOURINARY: Light to moderate bleeding. EXTREMITIES: No cyanosis or edema, non-tender, without signs of DVT. Medications and IVs Current Medications Medications (Trade) Dose Ordered Sig/Cherry Route Start Time Stop Time Status Last Admin (NS Flush) 2 ml BID IV FLUSH 05/14/17 09:00 (NS Flush) 2 ml UNSCH PRN IV FLUSH 05/14/17 02:15 (Tylenol) 650 mg Q4H PRN PO 05/14/17 02:15 (Motrin) 800 mg Q8H PRN PO 05/14/17 02:15 05/14/17 04:52 (Americaine 20% Top Spr) 1 spray Q4H PRN TOPICAL 05/14/17 02:15 05/14/17 04:52 (Tucks Pads) 1 applic QID PRN TOPICAL 05/14/17 02:15 05/14/17 04:52 (Geno-Colace) 2 tab Q12H PRN PO 05/14/17 02:15 (Ambien) 5 mg HS PRN PO 05/14/17 02:15 (Mag-Al Plus Susp Liq) 15 ml Q8H PRN PO 05/14/17 02:15 (Zofran Odt) 4 mg Q6H PRN PO 05/14/17 02:15 (William Davis MD, R3) Assessment/Plan Problem List: (1) Vaginal delivery ICD Codes: O80 - Encounter for full-term uncomplicated delivery Status: Acute Plan: 22 year old PPD1 1. Care - AFVSS since delivery - Motrin prn pain - Encouraged OOB, as tolerated - Pelvic rest x 6 weeks - Will f/u with me in 4 weeks - Encouraged breast-feeding, but patient is not interested - Patient is unsure about contraception at this point. She would like time to consider her options and discuss this with me in 4 weeks. - Likely discharge today. (William Davis MD, R3) Attending Attestation Patient seen and examined, discussed with Dr. Daquan Davis. I agree with assessment and management as documented and discussed with me. Pt without complaints. She is undecided re: control - discussion about options today. Anticipate discharge today, pending 's discharge. (Edda Brewster MD) William Davis MD, R3 May 15, 2017 08:13 Edda Brewster MD May 15, 2017 08:55
[2017-05-15] MEDS ORDERED: IBUP1TAB7 PO (08:15)
[2017-05-15] MEDS ORDERED: PERI PO (08:15)
--- NOTE | 2017-05-15 08:16 | HHI.DCPOC ---
Discharge Care Plan Diagnosis: (1) Vaginal delivery Report Symptoms to Your Doctor -Temperature above 100.5 degrees -Redness, of incision or excessive or foul smelling drainage -Unusual pain or calf pain -Increased vaginal bleeding -Painful or difficulty urinating -Feelings of extreme sadness or anxiety after 2 weeks Goals to Promote Your Health * To prevent worsening of your condition and complications * To maintain your health at the optimal level Directions to Meet Your Goals Take your medications as prescribed Follow your dietary instruction Follow activity as directed Ensure plenty of rest for recovery Drink fluids for hydration Keep your appointments as scheduled Take your immunizations and boosters as scheduled If your symptoms worsen call your PCP, if no PCP go to Urgent Care Center or Emergency Room Smoking is Dangerous to Your Health. Avoid second hand smoke Call the 24-hour crisis hotline for domestic abuse at William Davis MD, R3 May 15, 2017 08:16
[2017-05-15] MEDS: IBUPROFEN 800 MG TAB PO PRN (16:36)
[2017-05-15 19:35] VITALS: BP 147/89; PULSE 61; RESP 17; TEMP 99.1
[2017-05-15] MEDS: SODIUM CHLORIDE 0.9% FLUSH 10 ML FLUSH IV FLUSH SCH (19:36)
--- NOTE | 2017-05-16 08:09 | HHI.OB ---
Subjective Post Day: 2 Remarks Patient is doing well this morning. Her pain is well controlled and bleeding is much less than a period. She is eating and drinking well with no nausea or vomiting and denies pain or burning with urination. She has not passed gas or had a bowel movement. She is feeding baby via bottle and has been ambulating well with no leg pain or edema. She denies shortness of breath or chest pain and her mood is good. She is ready to go home today. Objective Vitals/I&O Vital Signs Date Time Temp Pulse Resp B/P (MAP) Pulse Ox O2 Delivery O2 Flow Rate FiO2 05/15/17 19:35 99.1 61 17 05/15/17 19:35 147/89 (108) Objective Remarks GENERAL: Well-nourished, well-developed patient. CARDIOVASCULAR: Regular rate and rhythm without murmurs, gallops, or rubs. RESPIRATORY: Breath sounds equal bilaterally. No accessory muscle use. ABDOMEN/GI: Abdomen soft, non-tender. Fundus: Firm, non-tender below umbilicus. GENITOURINARY: Light to moderate bleeding. EXTREMITIES: No cyanosis or edema, non-tender, without signs of DVT. Medications and IVs Current Medications Medications (Trade) Dose Ordered Sig/Cherry Route Start Time Stop Time Status Last Admin (NS Flush) 2 ml BID IV FLUSH 05/14/17 09:00 (NS Flush) 2 ml UNSCH PRN IV FLUSH 05/14/17 02:15 (Tylenol) 650 mg Q4H PRN PO 05/14/17 02:15 (Motrin) 800 mg Q8H PRN PO 05/14/17 02:15 05/15/17 16:36 (Americaine 20% Top Spr) 1 spray Q4H PRN TOPICAL 05/14/17 02:15 05/14/17 04:52 (Tucks Pads) 1 applic QID PRN TOPICAL 05/14/17 02:15 05/14/17 04:52 (Geno-Colace) 2 tab Q12H PRN PO 05/14/17 02:15 (Ambien) 5 mg HS PRN PO 05/14/17 02:15 05/15/17 21:55 (Mag-Al Plus Susp Liq) 15 ml Q8H PRN PO 11/30/17 02:15 (Zofran Odt) 4 mg Q6H PRN PO 05/14/17 02:15 Assessment/Plan Problem List: (1) Vaginal delivery ICD Codes: O80 - Encounter for full-term uncomplicated delivery Status: Acute Assessment and Plan 22 year old PPD2 Care - BP 128/99 and 133/91 this morning. Will recheck at 9 AM, if stable, can discharge home.. - Motrin prn pain - Encouraged OOB, as tolerated - Pelvic rest x 6 weeks - Will f/u with Dr. Daquan Davis in 4 weeks - Feeding via bottle - Patient is unsure about contraception at this point. She would like time to consider her options and discuss with Dr. Daquan Davis in [address] Grace Discharge Planning Discharge home today Olga Vyas MD R2 May 16, 2017 08:09
[2017-05-16] MEDS: SODIUM CHLORIDE 0.9% FLUSH 10 ML FLUSH IV FLUSH SCH (08:58)
[2017-05-16] MEDS ORDERED: MEASLES, MUMPS, RUBELLA VACCINE 0.5 ML VIAL SQ ONE (10:30)
== END 2017-05-16 11:01 | disposition home or self-care (01) | DRG 775 ==
LOC: H2EB 20:02 → H1EA 05-14 03:46
PROVIDERS: ADMIT Obstetrics & Gynecology Maternal & Fetal Medicine; ATTEND Obstetrics & Gynecology Maternal & Fetal Medicine
PROC: 10E0XZZ Delivery of Products of Conception, External Approach (ICD-10-PCS; principal; 2017-05-14)
PROC: 0KQM0ZZ Repair Perineum Muscle, Open Approach (ICD-10-PCS; 2017-05-14)
DX: O99.824 Streptococcus B carrier state complicating childbirth (principal); O99.344 Other mental disorders complicating childbirth; F41.1 Generalized anxiety disorder; Z37.0 Single live birth; Z3A.41 41 weeks gestation of pregnancy; O70.1 Second degree perineal laceration during delivery
CPT/HCPCS: 59025; 80307; 81001; 85025; 86850; 86900; 86901; 90707; J2540; J7120